=== PATIENT | female | born 1970 | race Caucasian/White ===

== ENCOUNTER 2017-09-01 15:22 | Emergency (ER) | payer SELFPAY ==
[~2017-09-01] VITALS: Ht 165.1 cm; Wt 92.9 kg
[~2017-09-01 15:22] MED LIST: ASPI-515 PO; BIOT1000 PO; FLUO20CA19 PO; IBUP-1222 PO; IBUP100O23 PO; METR500T8 PO; MULT-154 PO; OMEP-110 PO; OXYC-302 PO; OXYC5CAP2 PO; PREG50CA PO; PSEU-57 PO; TAMS-11 PO; TRAM50TA2 PO; TRAZ100T15 PO; VENL150C PO; VITAMIN B PO; WARF10TA PO; WARF7.5T PO
[2017-09-01 15:49] LABS: HEMATOCRIT 41.8 % (34.6-47.8); HEMOGLOBIN 14.3 g/dL (11.7-16.4); WHITE BLOOD COUNT 8.6 x10^3/uL (3.4-10)
[2017-09-01 16:03] LABS: ASPARTATE AMINO TRANSFERASE 12 U/L (15-37); BLOOD UREA NITROGEN 10 mg/dL (7-18)
[2017-09-01] MEDS ORDERED: FLUO40CA2 PO (16:04)
[2017-09-01] MEDS ORDERED: GABA100C PO (16:04)
[2017-09-01 16:09] LABS: IS PT STATUS REG ER OR PRE ER? YES
[2017-09-01] MEDS ORDERED: HYDROcodone/APAP 5/325 TABLET PO ONE (17:00)
[2017-09-01] MEDS ORDERED: HYDROcodone/APAP 5/325 TABLET ONE (17:35)
[2017-09-01 17:40] VITALS: BP 117/75
== END 2017-09-01 17:49 | disposition home or self-care (01) ==
LOC: ED 17:43
DX: R53.83 Other fatigue (principal); Z90.49 Acquired absence of other specified parts of digestive tract; G43.909 Migraine, unspecified, not intractable, without status migrainosus; Z86.718 Personal history of other venous thrombosis and embolism
CPT/HCPCS: 36415; 70220; 71010; 80053; 83690; 84436; 84443; 84484; 85025; 93005; 99285

== ENCOUNTER 2017-11-04 16:01 | Emergency (ER) | payer MEDICAID ==
[~2017-11-04] VITALS: Ht 165.1 cm; Wt 92.9 kg
[~2017-11-04 16:01] MED LIST changes: +FLUO40CA2 PO; +GABA100C PO
[2017-11-04 16:45] LABS: HEMATOCRIT 43.9 % (34.6-47.8); WHITE BLOOD COUNT 9.4 x10^3/uL (3.4-10)
[2017-11-04] MEDS ORDERED: DULO30CA2 PO (16:49)
[2017-11-04 16:54] LABS: BLOOD UREA NITROGEN 10 mg/dL (7-18)
[2017-11-04 16:56] LABS: ASPARTATE AMINO TRANSFERASE 15 U/L (15-37)
[2017-11-04] MEDS ORDERED: KETOROLAC 30 MG/1 ML ONE (18:49)
[2017-11-04] MEDS ORDERED: KETOROLAC 30 MG/1 ML IVPush ONE (19:00)
[2017-11-04 20:50] VITALS: BP 124/76
== END 2017-11-04 21:07 | disposition home or self-care (01) ==
LOC: ED 20:42
DX: G89.29 Other chronic pain (principal); R10.84 Generalized abdominal pain; M79.7 Fibromyalgia
CPT/HCPCS: 36415; 80053; 81001; 85025; 87086; 96374; 99284; J1885

== ENCOUNTER → 2018-09-29 | Outpatient (CLI) | payer MEDICAID ==
[~2018-09-29] MED LIST changes: +DULO30CA2 PO; -IBUP100O23 PO; +IBUP100O24 PO; +TRAZ-137 PO; -TRAZ100T15 PO
== END | disposition home or self-care (01) ==
LOC: CFH 08:00
PROVIDERS: ATTEND Nurse Practitioner Family
DX: Z01.89 Encounter for other specified special examinations (principal); R49.0 Dysphonia
CPT/HCPCS: 76536

== ENCOUNTER 2018-11-13 13:02 | Emergency (ER) | payer MEDICAID ==
[~2018-11-13] VITALS: Ht 165.1 cm; Wt 90.0 kg
[~2018-11-13 13:02] MED LIST changes: +METR-142 PO; -METR500T8 PO
[2018-11-13 13:08] VITALS: BP 136/83
--- NOTE | 2018-11-13 13:17 | NUR ---
triage: mask placed in triage
== END 2018-11-13 14:22 | disposition home or self-care (01) ==
LOC: ED 14:18
DX: J06.9 Acute upper respiratory infection, unspecified (principal); B97.89 Other viral agents as the cause of diseases classified elsewhere; G43.909 Migraine, unspecified, not intractable, without status migrainosus
CPT/HCPCS: 71046; 87081; 87880; 99284

== ENCOUNTER 2020-05-08 17:06 | Emergency (ER) | payer MEDICAID ==
[~2020-05-08] VITALS: Ht 165.1 cm; Wt 97.1 kg
[~2020-05-08 17:06] MED LIST changes: -METR-142 PO; +METR-90 PO; -TRAZ-137 PO; +TRAZ-175 PO
--- NOTE | 2020-05-08 18:59 | NUR ---
PT TO ED WITH C/O LEFT BACK PAIN, LEFT SIDED ABDOMINAL PAIN FROM LLQ TO GROIN X2 DAYS. PT REPORTS HX OF KIDNEY STONES. DENIES ANY OTHER C/O AT THIS TIME. MONITORING IN PLACE, CALL LIGHT WITHIN REACH, ALL SAFETY MEASURES IN PLACE.
[2020-05-08] MEDS ORDERED: ONDANSETRON 2MG/ML, 2ML IVPush ONE (20:00)
[2020-05-08] MEDS ORDERED: SODIUM CHLORIDE 0.9% 1,000ML IVBOLUS ONE (20:00)
[2020-05-08] MEDS ORDERED: SODIUM CHLORIDE FLUSH 10ML SYR IVF ONE (20:00)
[2020-05-08] MEDS ORDERED: MORPHINE SULFATE 4 MG/ML, 1ML ONE ×2 (20:15→22:24)
[2020-05-08] MEDS ORDERED: ONDANSETRON 2MG/ML, 2ML ONE (20:16)
[2020-05-08 20:18] LABS: BASOPHILS # (AUTO) 0.05 x10^3/uL (0-0.1); BASOPHILS % (AUTO) 1 % (0-1); EOSINOPHILS # (AUTO) 0.13 x10^3/uL (0-0.4); EOSINOPHILS % (AUTO) 1 % (1-7); LYMPHOCYTES # (AUTO) 2.21 x10^3/uL (1-3.4); LYMPHOCYTES % (AUTO) 23 % (22-44); MD NO; MEAN CORPUSCULAR HGB CONC 33.7 g/dL (32.4-35.8); MEAN PLATELET VOLUME 8.1 fL (7.4-10.4); MONOCYTES # (AUTO) 0.38 x10^3/uL (0.2-0.8); MONOCYTES % (AUTO) 4 % (2-9); NEUTROPHILS # (AUTO) 6.67 x10^3/uL (1.8-6.8); NEUTROPHILS % (AUTO) 71 % (42-75); PLATELET COUNT 310 x10^3/uL (130-400); RED CELL DISTRIBUTION WIDTH 12.5 % (9.6-15.2)
[2020-05-08 20:27] LABS: ALANINE AMINOTRANSFERASE 35 U/L (12-78); ALBUMIN 3.6 g/dL (3.4-5.0); ANION GAP 5 mmol/L (5-15); CALCIUM 8.7 mg/dL (8.5-10.1); CHLORIDE 108 mmol/L (98-107); CREATININE 0.83 mg/dL (0.55-1.02)
[2020-05-08 20:31] LABS: ALKALINE PHOSPHATASE 61 U/L (45-117); BILIRUBIN,TOTAL 0.3 mg/dL (0.2-1.0); TOTAL PROTEIN 7.4 g/dL (6.4-8.2)
[2020-05-08] MEDS: MORPHINE SULFATE 4 MG/ML, 1ML IVPush PRN ×2 (21:17→22:26)
--- NOTE | 2020-05-08 21:24 | NUR ---
PT RESTING ON [facility]. MONTORING IN PLACE. UA PROVIDED AND SENT. CALL LIGHT WITHIN REACH.
[2020-05-08 21:29] LABS: MICROSCOPIC INDICATED
[2020-05-08 22:19] VITALS: BP 130/78
[2020-05-08] MEDS ORDERED: NITROFURANTOIN (MACROBID) 100 MG CAPSULE PO ONE (22:30)
[2020-05-08] MEDS ORDERED: NITROFURANTOIN (MACROBID) 100 MG CAPSULE ONE (22:31)
== END 2020-05-08 23:20 | disposition home or self-care (01) ==
LOC: ED 23:19
DX: N30.00 Acute cystitis without hematuria (principal); R10.32 Left lower quadrant pain; G43.909 Migraine, unspecified, not intractable, without status migrainosus; M79.7 Fibromyalgia; Z86.718 Personal history of other venous thrombosis and embolism
CPT/HCPCS: 36415; 74176; 80053; 81001; 83690; 84703; 85025; 87086; 96374; 96375; 96376; 99285; J2270; J2405; J7030